=== PATIENT | male | born 1955 | race Caucasian/White ===

== ENCOUNTER 2018-01-12 16:58 | Emergency (ER) | payer BC ==
[~2018-01-12] VITALS: Ht 188 cm; Wt 85.7 kg
[2018-01-12 17:44] LABS: HEMATOCRIT 40.6 % (38.0-50.0); HEMOGLOBIN 13.7 G/DL (12.5-16.6); MCH 32.3 PG (29.0-34.0); MCHC 33.7 G/DL (30.0-36.0); MCV 95.8 FL (86-99); PLATELET COUNT 172 K/uL (156-360); RBC DIS.WIDTH-CV 12.9 % (11.8-14.6); RBC DIS.WIDTH-SD 45.4 % (39-53); RED BLOOD COUNT 4.24 M/uL (4.00-5.50); WHITE BLOOD COUNT 15.3 K/uL (4.1-10.2)
[2018-01-12 17:52] LABS: CHLORIDE 102 mEq/L (99-109); POTASSIUM 4.1 mEq/L (3.7-5.4); SODIUM 140 mEq/L (136-147)
[2018-01-12 17:53] LABS: GLUCOSE 153 mg/dL (70-99)
[2018-01-12 17:57] LABS: CREATININE 1.2 mg/dL (0.6-1.3); GFR ESTIMATE (CALCULATED) > 59 mL/min/ (58.99-99999)
[2018-01-12 17:58] LABS: UREA NITROGEN (BUN) 27 mg/dL (9-23)
[2018-01-12 18:19] VITALS: BP 144/70
[2018-01-12 19:13] LABS: APPEARANCE SL.HAZY ((CLEAR)); BILIRUBIN NEGATIVE; BLOOD LARGE; COLOR YELLOW ((YELLOW)); GLUCOSE (STRIP) NEGATIVE; KETONES 20; LEUKOCYTES NEGATIVE; NITRITE NEGATIVE; PROTEIN (STRIP) 100; SPECIFIC GRAVITY 1.028 (1.000-1.030); UROBILINOGEN 0.2 MG/DL (0.2-1.0)
[2018-01-12 19:30] LABS: BACTERIA NONE SEEN /HPF; CALCIUM OXALATE CRYSTALS 1+ /HPF; EPITHELIAL CELLS NONE SEEN /HPF; HYALINE CASTS 0-5 /LPF; MUCUS 1+ /LPF; RED BLOOD CELLS TNTC /HPF (0-5)
[2018-01-12] MEDS ORDERED: ZOFRAN ODT4 MG PO (19:54)
[2018-01-12] MEDS ORDERED: MOTRIN800 MG PO (19:54)
[2018-01-12] MEDS ORDERED: PERCOCET 5/31 TABLET PO (19:54)
[2018-01-12] MEDS ORDERED: FLOMAX0.4 MG PO (20:05)
== END 2018-01-12 21:10 | disposition home or self-care (01) ==
LOC: EME 16:58
PROVIDERS: Nurse Practitioner Family
DX: N13.2 Hydronephrosis with renal and ureteral calculous obstruction (principal); I48.91 Unspecified atrial fibrillation; Z79.01 Long term (current) use of anticoagulants
CPT/HCPCS: 74176; 80048; 81003; 85027; 99281; 99283; J1885; J2405; J7030